=== PATIENT | male | born 2000 | race Caucasian/White ===

== ENCOUNTER 2023-05-20 15:28 | Emergency (ER) | payer OTHER, SELFPAY ==
--- NOTE | ~2023-05-20 | XR_ITS ---
EXAM: XR hand LT min 3V DATE: 05/20/2023 17:11 HISTORY: left hand injury . COMPARISON: None available. FINDINGS: Normal mineralization. Possible avulsion fracture fragment at the anterior and proximal as pect of the left fourth middle phalange, slightly obscured by overlapping soft tissue. No lytic or bl astic lesion. Joint spaces are maintained. No erosion or periosteal change. Soft tissues within zachariah l limits. IMPRESSION: Possible volar plate avulsion fracture at the proximal aspect of the left fourth middle p halange, correlate with pain/tenderness. Reviewed, dictated and finalized at location K. IMPRESSION: Possible volar plate avulsion fracture at the proximal aspect of th e left fourth middle phalange, correlate with pain/tenderness.
[2023-05-20 16:13] VITALS: BP 141/83; PULSE 90; RESP 20; TEMP 37.2; O2SAT 100
--- NOTE | 2023-05-20 18:42 | ED.UPPEXIN ---
HPI - Extremity Injury (Upper) General Chief Complaint: Extremity Injury, Upper Stated Complaint: hand injury Time Seen by Provider: 05/20/23 17:56 Source: patient Mode of arrival: ambulatory Limitations: no limitations History of Present Illness HPI narrative: This is a 22-year-old male that presents to the emergency department for left fourth finger injury sustained about a week ago. Reports accidentally hitting his knuckle. Since he has had pain and swelling. Worse with movement and relieved with rest. Denies decreased range of motion or numbness. Related Data Allergies Allergy/AdvReac Type Severity Reaction Status Date / Time No Known Allergies Allergy Verified 05/20/23 16:15 [facility] Past Medical History Medical History (Updated 05/20/23 @ 18:47 by Virginia Velasquez PA-C) No active medical problems Social History Social History (Updated 05/20/23 @ 18:47 by Virginia Velasquez PA-C) Substance use: never Exam Narrative: GENERAL: Well-appearing, well-nourished, and in no acute distress. HEAD: Normocephalic, atraumatic. EYES: EOMI. EXTREMITIES: Normal range of motion. No obvious deformity. Normal radial pulse. Normal sensation. Mild bruising and swelling to the left fourth finger proximal phalanx SKIN: Warm, dry, no rash. NEURO: No focal deficits. Alert and oriented x3. PSYCH: Normal mood and affect Course Course Emergency Course: Patient and family in agreement with plan. Vital Signs Vital signs: Vital Signs Temperature 99 F 05/20/23 16:13 Pulse Rate 90 05/20/23 16:13 Respiratory Rate 20 05/20/23 16:13 Blood Pressure 141/83 H 05/20/23 16:13 Pulse Oximetry 100 05/20/23 16:13 Oxygen Delivery Room Air 05/20/23 16:13 Temperature 99 F 05/20/23 16:13 Pulse Rate 90 05/20/23 16:13 Respiratory Rate 20 05/20/23 16:13 Blood Pressure 141/83 H 05/20/23 16:13 Pulse Oximetry 100 05/20/23 16:13 Oxygen Delivery Room Air 05/20/23 16:13 MDM - Extremity Injury (Upper) MDM Narrative Medical decision making narrative: Patient presents to the emergency department after a left fourth finger injury about a week ago. Patient is neurovascularly intact. Left hand x-ray shows a possible volar plate avulsion fracture at the proximal aspect of the left fourth middle phalange. Patient placed in finger splint and will be given follow-up with hand surgery. Patient and family in agreement with plan. He was given warnings to return to the ER Differential Diagnosis Differential diagnosis: Likely finger sprain and other (finger fracture) Imaging Data Radiologist's impression: ITS Impressions Hand X-Ray 05/20/23 17:21 IMPRESSION: Possible volar plate avulsion fracture at the proximal aspect of the left fourth middle phalange, correlate with pain/tenderness. Critical Care Time Critical Care Time Critical Care Time: No Discharge Plan Discharge Clinical Impression: Finger fracture, left Qualifiers: Encounter type: initial encounter Finger: ring finger Fracture type: closed Phalanx: middle Fracture alignment: nondisplaced Qualified Code(s): S62.655A - Nondisplaced fracture of middle phalanx of left ring finger, initial encounter for closed fracture Patient Disposition: Home, Self-Care Condition: Stable Instructions: Finger Fracture (ED) Additional Instructions: Return to the ER if you experience fever, redness and swelling of your extremity, numbness or any other symptoms that are concerning to you Wear splint. Ice and elevate. Pain medication as needed and directed. Follow up with hand surgery Follow-up/Referrals: Adi Mercado MD [Physician] - 1 Week PHYSICIAN,[employer] [Primary Care Provider] -
--- NOTE | 2023-06-25 10:24 | PC.NURSE ---
LATE ENTRY This note is being entered to document information to the patient's record. The following information was omitted on [05/20/23], by [Karly Pierce RN]. Metal finger splint applied to left fourth finger.
--- NOTE | 2023-06-27 19:42 | PC.NURSE ---
05/20/23 splint applied to Left 4th finger.
== END 2023-05-20 18:59 | disposition home or self-care (01) ==
PROVIDERS: Emergency Provider Physician Assistant
DX: S62.655A Nondisplaced fracture of middle phalanx of left ring finger, initial encounter for closed fracture (principal); W22.8XXA Striking against or struck by other objects, initial encounter
CPT/HCPCS: 29130; 73130; 99284